=== PATIENT | female | born 1975 | race Caucasian/White ===

== ENCOUNTER 2018-07-21 16:21 | Emergency (ER) | payer OTHER ==
[2018-07-21 16:36] VITALS: O2SAT 100
[2018-07-21] MEDS ORDERED: Amoxicillin-Clav 875-125 mg Tab PO STA (17:11)
--- NOTE | 2018-07-21 17:18 | ED PDOC ---
HPI: Dental Pain/Injury Time Seen by Provider: 07/21/18 17:03 Chief Complaint (Nursing): Dental Pain Chief Complaint (Provider): right lower jaw pain History Per: Patient History/Exam Limitations: no limitations Onset/Duration Of Symptoms: Days (few) Current Symptoms Are (Timing): Still Present Additional Complaint(s): Gail Bill is a 42 year old female, with no significant past medical history, who presents to the emergency department complaining of a right lower jaw pain onset for few days. Patient believes she has a dental abscess but is unable to see a dentist until Wednesday. Patient reports swelling and states she spiked a fever yesterday. She further states her main concern is her brother is being on Wednesday and doesn't want her face to be more swollen for wedding pictures. She denies any difficulty swallowing, speaking or breathing. No further medical complaints. PMD: None provided. Past Medical History Reviewed: Historical Data, Nursing Documentation, Vital Signs Vital Signs: Last Vital Signs Temp 97.4 F L 07/21/18 16:34 Pulse 93 H 07/21/18 16:34 Resp 18 07/21/18 16:34 BP 113/76 07/21/18 16:34 Pulse Ox 100 07/21/18 16:34 - Medical History PMH: No Chronic Diseases - Surgical History Surgical History: No Surg Hx - Family History Family History: States: Unknown Family Hx - Home Medications Home Medications: Ambulatory Orders Medication Instructions Recorded Amoxicillin/Clavulanate [Augmentin 1 tab PO BID #14 tab 07/21/18 875 MG-125 MG] - Allergies Allergies/Adverse Reactions: Allergies Allergy/AdvReac Type Severity Reaction Status Date / Time No Known Allergies Allergy Verified 07/21/18 16:34 Review of Systems ROS Statement: Except As Marked, All Systems Reviewed And Found Negative Constitutional: Negative for: Fever ENT: Positive for: Mouth Pain (right lower jaw pain and swelling) Physical Exam - Reviewed Nursing Documentation Reviewed: Yes Vital Signs Reviewed: Yes - Physical Exam Appears: Positive for: No Acute Distress Head Exam: Positive for: ATRAUMATIC, NORMAL INSPECTION, NORMOCEPHALIC Skin: Positive for: Normal Color, Warm, Dry Eye Exam: Positive for: Normal appearance, EOMI, PERRL ENT: Positive for: Other (abscess to lateral of right inferior 2nd molar with area of fluctuance, no bleeding. 2nd molar appears to be disintegrated) Neck: Positive for: Normal, Painless ROM Extremity: Positive for: Normal ROM (upper and lower extremities). Negative for: Deformity, Swelling Neurologic/Psych: Positive for: Alert, Oriented - ECG O2 Sat by Pulse Oximetry: 100 (RA) Pulse Ox Interpretation: Normal Medical Decision Making Medical Decision Making: Time: 17:03 Initial Impression: Dental abscess. Patient already has arrangements for dental follow up. Will give 1 dose of Augmentin in ED and discharge with x7 day Rx for Augmentin. Initial Plan: --Augmentin 1 tab PO --Reevaluation ----- Scribe Attestation: Documented by Kam Obrien, acting as a scribe for Heather Frank MD. Provider Scribe Attestation: All medical record entries made by the Scribe were at my direction and personally dictated by me. I have reviewed the chart and agree that the record accurately reflects my personal performance of the history, physical exam, medical decision making, and the department course for this patient. I have also personally directed, reviewed, and agree with the discharge instructions and disposition. Disposition - Clinical Impression Clinical Impression: Dental abscess - Disposition Additional Instructions: Take antibiotics as prescribed. Take Motrin for pain and swelling. Follow up with your dentist as previously scheduled. Return to the emergency department if symptoms worsen or if new symptoms develop. Prescriptions: Amoxicillin/Clavulanate [Augmentin 875 MG-125 MG] 1 tab PO BID #14 tab Instructions: Tooth Abscess (DC), Dental Pain (DC) Forms: [email or web address] ([place]) Print Language: [id number]
[2018-07-21 17:40] VITALS: BP 123/67; PULSE 76; RESP 16; TEMP 98
== END 2018-07-21 17:39 | disposition home or self-care (01) ==
LOC: H.ER 16:21
DX: K04.7 Periapical abscess without sinus (principal)